=== PATIENT | female | born 1955 | race Caucasian/White ===

== ENCOUNTER 2018-11-13 13:24 | Emergency (ER) | payer MEDICAID, OTHER ==
[~2018-11-13] VITALS: Ht 165.1 cm; Wt 66.7 kg
--- NOTE | 2018-11-13 13:56 | NUR ---
NAPOLEON THAPA AT BEDSIDE FOR EVAL.
[2018-11-13] MEDS ORDERED: IPRATROPIUM NEB FS 0.5 MG/2.5 ML AMPUL.NEB NEB ONE (14:00)
[2018-11-13] MEDS ORDERED: IV NS 0.9% 1,000 ML BAG IV ONE (14:00)
[2018-11-13] MEDS ORDERED: methylPREDNISolone SOD SUCC 125 MG/2ML VIAL IV ONE (14:00)
[2018-11-13] MEDS ORDERED: ALBUTEROL FS 2.5 MG/3 ML VIAL.NEB NEB ONE (14:00)
--- NOTE | 2018-11-13 14:05 | NUR ---
RADIOLOGY AT BEDSIDE FOR CHEST XRAY.
[2018-11-13] MEDS ORDERED: methylPREDNISolone SOD SUCC 125 MG/2ML VIAL ONE (14:10)
[2018-11-13] MEDS ORDERED: HYDR25TA4 PO (14:11)
[2018-11-13] MEDS ORDERED: FLUT1DIS3 INH (14:11)
[2018-11-13] MEDS ORDERED: MELO-107 PO (14:11)
[2018-11-13] MEDS ORDERED: LEVO500T90 PO (14:11)
[2018-11-13] MEDS ORDERED: BUPR150T10 PO (14:11)
[2018-11-13] MEDS ORDERED: LEVO88TA5 PO (14:11)
[2018-11-13] MEDS ORDERED: OMEP40CA37 PO (14:11)
[2018-11-13] MEDS ORDERED: ASPI-1152 PO (14:11)
[2018-11-13] MEDS ORDERED: ALBU18HF2 INH (14:11)
[2018-11-13] MEDS ORDERED: MIRT7.5T10 PO (14:11)
[2018-11-13] MEDS ORDERED: PRED20TA PO (14:11)
[2018-11-13 14:13] LABS: BASOPHILS # (AUTO) 0.2 /CMM (0.0-0.2); BASOPHILS % (AUTO) 1.2 % (0.0-2.0); EOSINOPHILS % (AUTO) 0.1 % (0.0-6.0); HEMATOCRIT 43 % (33-45); HEMOGLOBIN 15.2 g/dL (11.5-14.8); LYMPHOCYTES # (AUTO) 2.5 /CMM (0.8-4.8); LYMPHOCYTES % (AUTO) 18.4 % (20.0-44.0); MEAN CORPUSCULAR HGB CONC 35 g/dl (31.0-36.0); MEAN CORPUSCULAR VOLUME 96 fL (82-100); MONOCYTES # (AUTO) 0.7 /CMM (0.1-1.30); NEUTROPHILS # (AUTO) 10.1 /CMM (1.8-8.9); NEUTROPHILS % (AUTO) 75.3 % (43.0-81.0); PLATELET COUNT (AUTO) 381 /CMM (150-450); RED BLOOD CELL COUNT(AUTO) 4.52 MIL/uL (4.0-5.2); WHITE BLOOD COUNT (AUTO) 13.4 K/uL (4.3-11.0)
[2018-11-13] MEDS ORDERED: ALBUTEROL FS 2.5 MG/3 ML VIAL.NEB ONE (14:24)
[2018-11-13] MEDS ORDERED: IPRATROPIUM NEB FS 0.5 MG/2.5 ML AMPUL.NEB ONE (14:24)
[2018-11-13 14:27] LABS: CALCIUM, SERUM 9.6 mg/dL (8.5-10.1); CARBON DIOXIDE 27 mmol/L (21-32); CHLORIDE 102 mmol/L (98-107); GLUCOSE 99 mg/dL (74-106); POTASSIUM 3.7 mmol/L (3.5-5.1); SODIUM SERUM 137 mmol/L (136-145); UREA NITROGEN, BLOOD 19 mg/dL (7-18)
--- NOTE | 2018-11-13 14:27 | NUR ---
RT AT BEDSIDE FOR BREATHING TREATMENT.
[2018-11-13 14:32] LABS: ALANINE AMINOTRANSFERASE 66 U/L (12-78); ALBUMIN 3.9 g/dL (3.4-5.0); ALKALINE PHOSPHATASE 148 U/L (46-116); ASPARTATE AMINOTRANSFERASE 28 U/L (15-37); BILIRUBIN,DIRECT 0.1 mg/dL (0.0-0.2); BILIRUBIN,TOTAL 0.4 mg/dL (0.2-1.0); TOTAL PROTEIN, SERUM 8.1 g/dL (6.4-8.2)
[2018-11-13] MEDS ORDERED: LEVOFLOXACIN 750 MG /D5W 150ML 150 ML IV ONE ×2 (15:30→15:47)
--- NOTE | 2018-11-13 16:01 | NUR ---
TALKED TO [employer] ABOUT PT'S PLAN OF CARE.
--- NOTE | 2018-11-13 16:44 | NUR ---
CALI FROM [facility] ([phone]) CALLED FOR ER- MD TO CALL DR. JEAN FROM [facility] AT [phone] RE: PATIENT.
--- NOTE | 2018-11-13 17:12 | NUR ---
CALLED THE OFFICE OF DR HWANG AND A PAGE WAS SENT OUT.
--- NOTE | 2018-11-13 17:46 | NUR ---
Patient discharged to home in stable condition. Written and verbal after care instructions given. Patient verbalizes understanding of instruction.IV removed. Catheter intact and site benign. Pressure and 4x4 applied to site. No bleeding noted.
[2018-11-13 17:48] VITALS: BP 144/87
== END 2018-11-13 17:49 | disposition home or self-care (01) ==
LOC: ER 13:32
DX: J44.1 Chronic obstructive pulmonary disease with (acute) exacerbation (principal); F41.9 Anxiety disorder, unspecified; E03.9 Hypothyroidism, unspecified; F17.200 Nicotine dependence, unspecified, uncomplicated; Z88.0 Allergy status to penicillin; Z79.82 Long term (current) use of aspirin
CPT/HCPCS: 36415; 71045-TC; 80048-TC; 80076-TC; 84484-TC; 85025-TC; 87400; J1956; J2930; J7030